=== PATIENT | male | born 1990 | race Caucasian/White ===

== ENCOUNTER 2022-12-21 09:07 | Outpatient (AMB) | payer BC, SELFPAY ==
--- NOTE | 2022-12-21 09:11 | A.OFFVIS_ITS ---
Intake Vital Signs 12/21/22 09:14 Height 5 ft 7 in Weight 165 lb 5.547 oz BMI 25.9 BP 135/81 Blood Pressure Location Lt brachial Position Sitting Pulse 89 Intake Visit Reasons: family hx of ulcerative colitis. Intake Note: Frank presents in the office as a new patient family hx of Ulcerative Colitis CC: He states that WBC are low and he has family hx of UC. No symptoms currently. 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 Pt reports intermittent rectal bleeding after BM, with normal consistency and color of stool. Often triggered by constipation or certain foods. Last episode was 6-8 months ago. Otherwise no chronic sx at baseline such as abd pain, N,V, diarrhea, unintentional weight loss. Father () had hx of UC. ON LICENSE OF [facility] Medical History Anxiety History of ITP Surgical History H/O wisdom tooth extraction S/P LASIK surgery (~2019) Family History Father Ulcerative colitis Social History Household Members: Significant Other Housing: House Patient Tobacco Use Status: Never used Tobacco e-Cigarette/Vaping Use: Currently Using service: No Current occupational status: employed Review of Systems Const All systems reviewed & are unremarkable except as noted in HPI and below Physical Exam Vital Signs: Last Vital Signs Pulse 89 12/21/22 09:14 BP 135/81 12/21/22 09:14 BMI result Body Mass Index 25.9 Gen appear: NAD HEENT: nonicteric, no cervical lymphadenopathy Chest: CTA CVS: Regular S1/S2 Abd: soft, nontender, nondistended, bowel sounds + Ext: no peripheral edema Neuro: A/Ox3, noted to move all extremities spontaneously Psych: interacting appropriately Assessment & Plan Assessment & Plan (1) Bright red rectal bleeding: Code(s): K62.5 - Hemorrhage of anus and rectum Plan Overall clinical presentation is not suggestive of chronic inflammatory bowel disease however given fam hx will check stool studies and IBD panel. If normal, no further work up needed at this point unless symptoms evolve/worsen. If abnormal, will proceed with diagnostic endoscopy. Follow up contingent on above. Orders: Orders Calprotectin, Fecal Today K62.5 - Hemorrhage of anus and rectum C Reactive Protein Today K62.5 - Hemorrhage of anus and rectum [facility] SGI Today K62.5 - Hemorrhage of anus and rectum Coding Level of Care Code New Pt Level 4 (29000) Diagnoses Bright red rectal bleeding K62.5
[2022-12-21 09:14] VITALS: BP 135/81; PULSE 89; BMI 25.9
== END 2022-12-21 10:00 | disposition home or self-care (01) ==
PROVIDERS: PCP Internal Medicine; Visit Provider Internal Medicine
DX: K62.5 Hemorrhage of anus and rectum (principal)
CPT/HCPCS: 99204

== ENCOUNTER → 2022-12-21 09:07 | Outpatient (BNVA) | payer BC, SELFPAY | PROVIDERS: PCP Internal Medicine; Visit Provider Internal Medicine ==

== ENCOUNTER 2022-12-28 13:09 | Outpatient (REF) | payer BC, SELFPAY ==
[2022-12-28 13:39] LABS: MANUAL DIFF FLAG NO
[2022-12-28 14:08] LABS: Basophils Percent Auto 0.6 % (0-2); Eosinophils Absolute Auto 0.1 X10*3/uL (0.0-0.4); Hematocrit 43.9 % (42.0-52.0); Hemoglobin 16.1 g/dl (14.0-18.0); Imm Gran Abs Auto 0.02 X10*3/uL (0.00-0.03); Imm Gran Pct Auto 0.4 % (0.0-0.4); Lymphocytes Absolute Auto 1.5 X10*3/uL (1.2-4.9); Lymphocytes Percent Auto 30.5 % (20-40); Mean Corpuscular HGB Conc 36.7 g/dl (31.0-36.0); Mean Corpuscular Hemoglobin 32.5 pg (27.0-33.0); Mean Corpuscular Volume 88.5 fL (80.0-98.0); Mean Platelet Volume 10.3 fL (9.4-12.4); Monocytes Absolute Auto 0.5 X10*3/uL (0.1-1.2); Monocytes Percent Auto 9.4 % (2-11); Neutrophils Absolute Auto 2.8 x10*3/uL (2.0-8.3); Neutrophils Percent Auto 57.1 % (45-73); Platelet Count 291 X10*3/uL (160-400); Red Blood Count 4.96 X10*6/uL (4.60-5.80); Red Cell Distribution Width 11.8 % (11.0-16.0); White Blood Count 4.9 X10*3/uL (4.8-10.8)
[2022-12-28 14:41] LABS: C Reactive Protein < 0.10 mg/dL (< or = 0.50)
== END 2022-12-28 13:10 | disposition home or self-care (01) ==
LOC: HO.LAB 13:09
PROVIDERS: Absent Provider Internal Medicine; PCP Internal Medicine; Visit Provider Internal Medicine
DX: K62.5 Hemorrhage of anus and rectum (principal); D72.819 Decreased white blood cell count, unspecified
CPT/HCPCS: 36415; 81479; 82397; 83520; 85025; 86140; 88346; 88350